=== PATIENT | male | born 1965 | race Caucasian/White ===

== ENCOUNTER 2017-03-11 13:17 | Emergency (ER) | payer OTHER ==
[2017-03-11] MEDS ORDERED: KETOROLAC 60 MG/2 ML VIAL IM STA (13:43)
[2017-03-11] MEDS ORDERED: DEXAMETHASONE 10 MG/ML VIAL PO STA (13:43)
[2017-03-11] MEDS ORDERED: CHERRY SYRUP 10 ML UDC PO ONE (13:46)
--- NOTE | 2017-03-11 13:46 | ED Physician Documentation ---
PD HPI BACK PAIN - Stated complaint Stated Complaint: BACK PX - Chief complaint Chief Complaint: Back Pain - History obtained from History obtained from: Patient - History of Present Illness Timing - onset: How many days ago (3) Timing - duration: Days (3) Timing - details: Gradual onset, Still present Location: Lower Quality: Pain, Spasm, Sharp, Similar to prior episodes Associated symptoms: No: Fever, Weakness, Numbness, Incontinent of urine, Unable to urinate, Hematuria, Incontinent of stool Improves with: Rest, Position Worsened by: Movement, Lifting, Twisting Contributing factors: Other (The patient had been doing a lot of lifting and then 2 days ago he pulled the seat out from his Jeep and this injured his back and he has severe spasms.) Similar symptoms before: Diagnosis (lumbar disc disease.) Recently seen: Not recently seen Review of Systems Constitutional: denies: Fever, Chills Eyes: denies: Decreased vision Ears: denies: Ear pain Nose: denies: Congestion Throat: denies: Sore throat Respiratory: denies: Cough GI: denies: Nausea, Vomiting : denies: Dysuria, Frequency Skin: denies: Rash Musculoskeletal: reports: Back pain. denies: Neck pain Neurologic: denies: Generalized weakness, Focal weakness, Numbness PD PAST MEDICAL HISTORY - Past Medical History Cardiovascular: High cholesterol - Past Surgical History Past Surgical History: No - Present Medications Home Medications: Ambulatory Orders Medication Instructions Recorded Confirmed Atorvastatin [Lipitor] 10 mg PO DAILY 03/11/17 03/11/17 Cyclobenzaprine [Flexeril] 10 mg PO TID PRN #20 tablet 03/11/17 Gabapentin 100 mg PO DAILY 03/11/17 03/11/17 HYDROcod/ACETAM 5/325 [[place] 5/325] 1 - 2 ea PO Q6H PRN #15 tablet 03/11/17 - Allergies Allergies/Adverse Reactions: Allergies Allergy/AdvReac Type Severity Reaction Status Date / Time No Known Drug Allergies Allergy Verified 03/11/17 13:26 - Social History Does the pt smoke?: Yes Smoking Status: Current every day smoker Does the pt drink ETOH?: No Does the pt have substance abuse?: No PD ED PE NORMAL - Vitals Vital signs reviewed: Yes - General General: No acute distress, Well developed/nourished - HEENT HEENT: Atraumatic - Neck Neck: Supple, no meningeal sign - Respiratory Respiratory: No respiratory distress - Back Back: No CVA TTP, Other (There is dense spasm of the paraspinous muscles of the lumbar spine from the ribs to the insertion to the illiacs. There is midline tenderness as well and no lateralization ) - Derm Derm: Normal color, Warm and dry, No rash - Extremities Extremities: No deformity, No edema - Neuro Neuro: No motor deficit, No sensory deficit - Psych Psych: Normal mood, Normal affect Results - Vitals Vitals: Vital Signs - 24 hr 03/11/17 13:24 Temperature 36.7 C Heart Rate 107 H Respiratory 16 Rate Blood Pressure 124/77 O2 Saturation 98 Oxygen O2 Source Room air PD MEDICAL DECISION MAKING - ED course Complexity details: reviewed old records, considered differential, d/w patient ED course: 51-year-old male with acute lumbar back pain has marked spasm and has a history of lumbar disc disease. He has a recent lifting injury and he has no lateralizing signs and no distal signs. His back does appear to be in significant spasm. Here in the emergency department he is treated with 10 mg dexamethasone and 60 mg of Toradol intramuscularly. He is instructed to ice and stretch his back and we will place on some pain medication and muscle relaxant. Departure - Departure Disposition: 01 Home, Self Care Clinical Impression: Back spasm Condition: Stable Instructions: ED Spasm Back No Trauma Follow-Up: [facility] [Provider Group] Prescriptions: Cyclobenzaprine [Flexeril] 10 mg PO TID PRN #20 tablet PRN Reason: Spasms HYDROcod/ACETAM 5/325 [[place] 5/325] 1 - 2 ea PO Q6H PRN #15 tablet PRN Reason: Pain
[2017-03-11] MEDS ORDERED: KETOROLAC 60 MG/2 ML VIAL ONE (13:47)
[2017-03-11] MEDS ORDERED: DEXAMETHASONE 10 MG/ML VIAL ONE (13:47)
[2017-03-11 14:11] VITALS: BP 117/71
== END 2017-03-11 14:09 | disposition home or self-care (01) ==
LOC: ED 13:17
DX: M62.830 Muscle spasm of back (principal); X50.9XXA Other and unspecified overexertion or strenuous movements or postures, initial encounter; F17.200 Nicotine dependence, unspecified, uncomplicated
CPT/HCPCS: 96372; 99283; A9270

== ENCOUNTER 2017-10-22 10:25 | Emergency (ER) | payer OTHER ==
[2017-10-22 10:44] LABS: BASOPHILS % (AUTO) 0.6 %; EOSINOPHILS # (AUTO) 0.2 10^3/uL (0.0-0.7); EOSINOPHILS % (AUTO) 2.6 %; LYMPHOCYTES # (AUTO) 2.2 10^3/uL (1.5-3.5); MEAN CORPUSCULAR HEMOGLOBIN 31.2 pg (27.0-31.0); MEAN CORPUSCULAR HGB CONC 34.8 g/dL (32.0-36.0); MEAN CORPUSCULAR VOLUME 89.5 fL (80.0-94.0); MEAN PLATELET VOLUME 6.6 fL (7.4-11.4); MONOCYTES # (AUTO) 0.4 10^3/uL (0.0-1.0); MONOCYTES % (AUTO) 5.8 %; PLT - PLATELET COUNT 305 10^3/uL (130-450); RED BLOOD COUNT 4.83 10^6/uL (4.70-6.10); WHITE BLOOD COUNT 6.9 x10^3/uL (4.8-10.8)
[2017-10-22 10:50] LABS: BILIRUBIN,URINE NEGATIVE (NEGATIVE); GLUCOSE, URINE (UA) NEGATIVE (NEGATIVE); KETONES,URINE (UA) NEGATIVE (NEGATIVE); LEUKOCYTE ESTERASE, URINE NEGATIVE (NEGATIVE); NITRITE,URINE NEGATIVE (NEGATIVE); OCCULT BLOOD,URINE NEGATIVE (NEGATIVE); PROTEIN,URINE NEGATIVE (NEGATIVE); UROBILINOGEN,URINE 0.2 (NORMAL) E.U./dL (NORMAL)
[2017-10-22 10:51] LABS: CLARITY,URINE CLEAR (CLEAR)
[2017-10-22 10:56] LABS: ALBUMIN 4.3 g/dL (3.2-5.5); ALBUMIN/GLOBULIN RATIO 1.8 (1.0-2.2); BILIRUBIN,TOTAL 0.5 mg/dL (0.2-1.0); CALCIUM 9.4 mg/dL (8.5-10.3); CREATININE 0.8 mg/dL (0.6-1.2); TOTAL PROTEIN 6.7 g/dL (6.7-8.2)
--- NOTE | 2017-10-22 11:35 | ED Physician Documentation ---
PD HPI ABD PAIN - Stated complaint Stated Complaint: SIDE PX - Chief complaint Chief Complaint: Abd Pain - History obtained from History obtained from: Patient - History of Present Illness Timing - onset: How many days ago (2-3) Timing - duration: Days Timing - details: Abrupt onset, Still present, Intermittant Quality: Cramping, Aching, Pain Location: RLQ, LLQ Radiation: Right flank Improved by: No: Eating, Laying still, Position Worsened by: No: Eating, Moving, Position, Palpation Associated symptoms: Nausea. No: Fever, Near syncope / syncope Similar symptoms before: Diagnosis (kidney stone) Recently seen: Clinic ([facility] 2 days ago and had CT showing small right stone. Also 2 left stones in kidney. He had pain left side a month ago when seen here for ureteral stone and he says he passed it later in day. Was doing well for few weeks then had abrupt onset of pain right side now. Seen in clinic and Dx with kidney stone, and Rx Ibuprofen and FLomax. Patient says these are not controlling the pain, which is worse today.) Review of Systems Constitutional: denies: Fever, Chills Nose: denies: Rhinorrhea / runny nose, Congestion Throat: denies: Sore throat Cardiac: denies: Chest pain / pressure, Palpitations Respiratory: denies: Dyspnea, Cough GI: reports: Abdominal Pain, Nausea, Vomiting. denies: Abdominal Swelling, Constipation, Diarrhea PD PAST MEDICAL HISTORY - Past Medical History Past Medical History: Yes Cardiovascular: High cholesterol - Past Surgical History Past Surgical History: No - Present Medications Home Medications: Ambulatory Orders Medication Instructions Recorded Confirmed Dexamethasone [Decadron] 4 mg PO DAILY #5 tablet 10/22/17 HYDROcod/ACETAM 5/325 [[place] 5/325] 1 tab PO Q6H PRN #15 tablet 10/22/17 Ibuprofen 800 mg PO Q6HR PRN 10/22/17 10/22/17 Ondansetron Odt [Zofran] 4 mg TL Q6H PRN #15 tablet 10/22/17 Tamsulosin HCl [Flomax] 0.4 mg PO DAILY 10/22/17 10/22/17 - Allergies Allergies/Adverse Reactions: Allergies Allergy/AdvReac Type Severity Reaction Status Date / Time No Known Drug Allergies Allergy Verified 10/22/17 10:33 - Social History Does the pt smoke?: Yes Smoking Status: Current every day smoker Does the pt drink ETOH?: No Does the pt have substance abuse?: No PD ED PE NORMAL - Vitals Vital signs reviewed: Yes - General General: Alert and oriented X 3, Well developed/nourished, Other (appears in considerable pain right side/flank. ) - HEENT HEENT: Atraumatic, Pharynx benign - Neck Neck: Supple, no meningeal sign, No adenopathy - Cardiac Cardiac: RRR, No murmur - Respiratory Respiratory: Clear bilaterally - Abdomen Abdomen: Normal bowel sounds, Soft, Non tender, Non distended - Male Male : Deferred - Rectal Rectal: Deferred - Back Back: No spinal TTP, Other (some rigth CVA tenderness to percussion. ) - Derm Derm: Normal color, Warm and dry - Extremities Extremities: No deformity, No tenderness to palpate, Normal ROM s pain, No edema , No calf tenderness / cord - Neuro Neuro: Alert and oriented X 3, No motor deficit, No sensory deficit, Normal speech Results - Vitals Vitals: Oxygen O2 Source Room air - Labs Labs: Laboratory Tests 10/22/17 10/22/17 10/22/17 10:35 10:35 10:45 WBC 6.9 RBC 4.83 Hgb 15.0 Hct 43.2 MCV 89.5 MCH 31.2 H MCHC 34.8 RDW 13.0 Plt Count 305 MPV 6.6 L Neut # 4.0 Lymph # 2.2 [place] # 0.4 Eos # 0.2 Baso # 0.0 Absolute Nucleated RBC 0.00 Nucleated RBC % 0.0 Sodium 137 Potassium 4.1 Chloride 100 L Carbon Dioxide 24 Anion Gap 13.0 BUN 12 Creatinine 0.8 Estimated GFR (MDRD) 102 Glucose 168 H Calcium 9.4 Total Bilirubin 0.5 AST 20 ALT 24 Alkaline Phosphatase 47 Total Protein 6.7 Albumin 4.3 Globulin 2.4 Albumin/Globulin Ratio 1.8 Lipase 19 L Urine Color YELLOW Urine Clarity CLEAR Urine pH 7.0 Ur Specific [place] 1.010 Urine Protein NEGATIVE Urine Glucose (UA) NEGATIVE Urine Ketones NEGATIVE Urine Occult Blood NEGATIVE Urine Nitrite NEGATIVE Urine Bilirubin NEGATIVE Urine Urobilinogen 0.2 (NORMAL) Ur Leukocyte Esterase NEGATIVE Ur Microscopic Review NOT INDICATED Urine Culture Comments NOT INDICATED PD MEDICAL DECISION MAKING - ED course Complexity details: reviewed old records (was passing left urteral stone [place] weeks ago. Had 2 small stones in kidney on that scan just a month ago. I could not get access to CT done couple days ago at [facility].), reviewed results, re- evaluated patient, considered differential, d/w patient Departure - Departure Disposition: 01 Home, Self Care Clinical Impression: Right sided abdominal pain, Ureterolithiasis Condition: Stable Record reviewed to determine appropriate education?: Yes Instructions: ED Stone Renal W Colic Follow-Up: MICHEAL ALLEN [Primary Care Provider] - [facility] [Provider Group] Prescriptions: Dexamethasone [Decadron] 4 mg PO DAILY #5 tablet HYDROcod/ACETAM 5/325 [[place] 5/325] 1 tab PO Q6H PRN #15 tablet PRN Reason: Pain Ondansetron Odt [Zofran] 4 mg TL Q6H PRN #15 tablet PRN Reason: Nausea / Vomiting Comments: Continue your current medications of Flomax and ibuprofen. Add Zofran if needed for nausea. Add Decadron for inflammation. Add hydrocodone if needed for pain. Follow-up with urology as referred by your primary care. Follow-up with your primary care if not improved over the next couple of days few days. Typically the urologists are quick to see you once you get to them the referral process can be long sometimes. Discharge Date/Time: 10/22/17 13:45
[2017-10-22] MEDS ORDERED: LIDOCAINE-MPF 2% 5 ML in SODIUM CHLORIDE 0.9% 50 ML IV STA (11:52)
[2017-10-22] MEDS ORDERED: ONDANSETRON 4 MG/2 ML VIAL IVP STA (11:52)
[2017-10-22] MEDS ORDERED: KETOROLAC 60 MG/2 ML VIAL IVP STA (11:52)
[2017-10-22] MEDS ORDERED: HYDROmorphone 1 MG/ML SYRINGE IVP STA (11:52)
[2017-10-22 13:41] VITALS: BP 101/77
== END 2017-10-22 13:45 | disposition home or self-care (01) ==
LOC: ED 10:25
DX: N20.2 Calculus of kidney with calculus of ureter (principal); Z87.442 Personal history of urinary calculi; R10.31 Right lower quadrant pain; E78.00 Pure hypercholesterolemia, unspecified; F17.200 Nicotine dependence, unspecified, uncomplicated
CPT/HCPCS: 36415; 80053; 81003; 83690; 85025; 96374; 96375; 99283; 99284; J1170; J7040; 81001; 87086